=== PATIENT | female | born 1960 | race Caucasian/White ===

== ENCOUNTER 2017-03-01 08:00 | Day surgery (SDC) | payer MEDICARE, OTHER ==
--- NOTE | ~2017-03-01 | EGD ---
EGD REPORT [facility] [address] [address] NAME: SHANELLE RUFF : 58 STATUS : [facility]#: [id number] AGE: 56 ADM/REG DATE : 03/01/17 MR#: [id number] REPORT SERV DATE: 03/01/17 DICTATED BY: NEREYDA RAI DATE: 03/01/17 REPORT STATUS : Draft TRANSCRIBED BY: [employer] DATE: 03/01/17 [facility] Center Patient Name: Shanelle Ruff Date of : 1960 Attending MD: NEREYDA RAI MD Procedure Date No Time: 03/01/2017 Procedure: Upper GI endoscopy Indications: Epigastric abdominal pain, Abnormal CT of the GI tract, Weight loss Referring MD: CHARI RILEY MD Medicines: as per anesthesia Complications: No immediate complications. Procedure: After obtaining informed consent, the endoscope was passed under direct vision. Throughout the procedure, the patient's blood pressure, pulse, and oxygen saturations were monitored continuously. The GIF [id number] was introduced through the mouth, and advanced to the third part of duodenum. The upper GI endoscopy was accomplished without difficulty. The patient tolerated the procedure. Findings: The examined esophagus was normal. Localized mild inflammation characterized by erythema was found in the gastric antrum. Biopsies were taken with a cold forceps for histology. A few sessile polyps were found in the gastric body. Biopsies were taken with a cold forceps for histology. The cardia and gastric fundus were normal on retroflexion. The examined duodenum was normal. Impression: - Normal esophagus. - Gastritis. Biopsied. - A few gastric polyps. Biopsied. - Normal examined duodenum. Recommendation: - Await pathology results. Procedure Code(s): --- Professional --- 30867, Esophagogastroduodenoscopy, flexible, transoral; with biopsy, single or multiple Diagnosis Code(s): --- Professional --- K29.70, Gastritis, unspecified, without bleeding K31.7, Polyp of stomach and duodenum R10.13, Epigastric pain EGD REPORT [facility] [address] [place] [address]. [id number] NAME: SHANELLE RUFF : [birth year] STATUS : [facility]#: [id number] AGE: 56 ADM/REG DATE : 03/01/17 MR#: [id number] REPORT SERV DATE: 03/01/17 DICTATED BY: NEREYDA RAI DATE: 03/01/17 REPORT STATUS : Draft TRANSCRIBED BY: [employer] DATE: 03/01/17 R93.3, Abnormal findings on diagnostic imaging of other parts of digestive tract R63.4, Abnormal weight loss CPT copyright 2013 [employer]. All rights reserved. The codes documented in this report are preliminary and upon spectrographic analyst review may be revised to meet current compliance requirements. NEREYDA RAI MD 03/01/2017 11:26 AM This report has been signed electronically. Number of Addenda: 0 Note Initiated On: 03/01/2017 11:03 AM Scope Withdrawal Time 0 hours 0 minutes 0 seconds [address] [place] [address]
[~2017-03-01 08:00] MED LIST: ALEVE220 MG PO; AMB10 PO; ASAB PO; ASMANEX INH; CALTRAT600 PO; FLONASE NAS; HORMONE TROCHE SL; LEXAPRO5 MG PO; MACRODANTIN 10100 MG PO; MULTI-VIT HP PO; PRILO PO; PRILOSEC10 MG PO; PROAIR HFA INH; PROVHFA INH; PULMICORT180 MCG INH; SYSTANE OPH; VITAMIN D31000 UNIT PO; VIVELLE-DOT0.1 MG TOP; [UNRECOGNIZED DRUG - OTHER] PO
== END 2017-03-01 23:59 | disposition home or self-care (01) ==
LOC: DMU 08:00
PROVIDERS: Internal Medicine Gastroenterology
PROC: 0DB68ZX Excision of Stomach, Via Natural or Artificial Opening Endoscopic, Diagnostic (ICD-10-PCS; principal; 2017-03-01 09:30)
DX: K31.7 Polyp of stomach and duodenum (principal); G47.33 Obstructive sleep apnea (adult) (pediatric); J45.909 Unspecified asthma, uncomplicated; M79.7 Fibromyalgia; Z99.89 Dependence on other enabling machines and devices; Z79.899 Other long term (current) drug therapy; Z90.89 Acquired absence of other organs; Z98.890 Other specified postprocedural states; Z90.49 Acquired absence of other specified parts of digestive tract
CPT/HCPCS: 88305